=== PATIENT | male | born 1965 ===

== ENCOUNTER 2016-12-28 17:48 | Emergency (ER) | payer OTHER ==
[2016-12-28 18:20] VITALS: BMI 28.2
[2016-12-28 18:24] VITALS: BP 130/81; TEMP 98.4; O2SAT 98
--- NOTE | 2016-12-28 19:04 | C.PDOC ---
History Of Present Illness 51 yo male come in for evaluation of Right chest wall rash for past 3-4 days associated with increasing burning pain. Pt admits, was seen by PMD few days ago and received Rx: Acyclovir- currently taking. Pt c/o pain, no relived with OTC medication., Otherwise, pt denies fever, chills, headache, dizziness, neck pain, CP, SOB, dyspnea, diaphoresis, palpitation, N/V. Ambulate to ED for evaluation, not in any apparent distress. Time Seen by Provider: 12/28/16 18:35 Chief Complaint (Nursing): Abnormal Skin Integrity History Per: Patient History/Exam Limitations: no limitations Onset/Duration Of Symptoms: Days (3-4 fays) Current Symptoms Are (Timing): Still Present Past Medical History Reviewed: Historical Data, Nursing Documentation, Vital Signs Vital Signs: Last Vital Signs Temp 98.4 F 12/28/16 18:20 Pulse 71 12/28/16 19:23 Resp 18 12/28/16 19:23 BP 130/81 12/28/16 18:20 Pulse Ox 98 12/28/16 19:44 - Medical History PMH: Gastritis Family History: States: No Known Family Hx - Social History Hx Tobacco Use: No Hx Alcohol Use: No Hx Substance Use: No - Immunization History Hx Tetanus Toxoid Vaccination: No Hx Influenza Vaccination: No Hx Pneumococcal Vaccination: No Review Of Systems Except As Marked, All Systems Reviewed And Found Negative. Constitutional: Negative for: Fever, Chills Cardiovascular: Negative for: Chest Pain, Palpitations Respiratory: Negative for: Shortness of Breath Gastrointestinal: Negative for: Nausea, Vomiting Musculoskeletal: Negative for: Neck Pain Skin: Positive for: Rash (Right chest wall rash) Neurological: Negative for: Headache, Dizziness Physical Exam - Physical Exam Appears: Well, Non-toxic, No Acute Distress Skin: Normal Color, Warm, Dry, Rash (Right anterior and posterior chest wall erythematous papular/vesicular rash overlying T5-6 dermatome, no discharge, no cellulitis.) Eye(s): bilateral: Normal Inspection Nose: Normal Oral Mucosa: Moist Tongue: Normal Appearing Throat: Normal Neck: Normal, Normal ROM, Supple Lymphatic: Normal Exam Respiratory: Normal Breath Sounds Back: Normal Inspection Extremity: Normal ROM, No Tenderness, No Pedal Edema, No Deformity Neurological/Psych: Oriented x3, Normal Speech ED Course And Treatment O2 Sat by Pulse Oximetry: 98 Pulse Ox Interpretation: Normal Progress Note: On re-eavluation, pt is afebrile, hemodynamicaly stable. NOn- toxic. Tolerate Po well in ED. PulseOx 98% RA. ENT: no acute finidngs. Neck: (-) meningeal sign. Lungs: CTA B/L, BS equal B/L. Neurologicaly intact. SKin : exam c/w H/Zoster, no supperimposed infection, cellulitis. Pt advised on course of ds. Cont. Acyclovir as intiated, pain medication prn. ref. to F/U with PMd in 2-3 days for re-eavl. return if any new changes. Disposition Counseled Patient/Family Regarding: Diagnosis, Need For Followup, Rx Given - Disposition Referrals: José Miguel Lopez MD [Medical Doctor] - Disposition: HOME/ ROUTINE Disposition Time: 18:50 Condition: STABLE Additional Instructions: Take Acyclovir as prescribed by PMD. Take pain medication as need for pain Follow up with PMD In 2-3 days for re-evaluation. Return to ED if any worsening or new changes. 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 - Scribe Statement The provider has reviewed the documentation as recorded by the Scribwale Espinoza All medical record entries made by the Harleyibwale were at my direction and personally dictated by me. I have reviewed the chart and agree that the record accurately reflects my personal performance of the history, physical exam, medical decision making, and the department course for this patient. I have also personally directed, reviewed, and agree with the discharge instructions and disposition.
[2016-12-28 19:23] VITALS: PULSE 71; RESP 18
== END 2016-12-28 19:24 | disposition home or self-care (01) ==
LOC: C.ER 17:48
DX: B02.9 Zoster without complications (principal)

== ENCOUNTER 2017-01-11 05:41 | Emergency (ER) | payer OTHER ==
[2017-01-11 05:41] VITALS: BMI 28.2
[2017-01-11] MEDS ORDERED: Sodium Chloride 0.9% 1,000 ML IV ONE (06:02)
[2017-01-11] MEDS ORDERED: Sodium Chloride 0.9% 1,000 ML ONE (06:10)
--- NOTE | 2017-01-11 06:19 | C.PDOC ---
Time Seen by Provider: 01/11/17 06:00 Chief Complaint (Nursing): Abdominal Pain Past Medical History Vital Signs: Last Vital Signs Temp 98.3 F 01/11/17 05:47 Pulse 86 01/11/17 05:47 Resp 20 01/11/17 05:47 BP 112/77 01/11/17 05:47 Pulse Ox 98 01/11/17 05:47 - Medical History PMH: Gastritis Family History: States: Unknown Family Hx - Social History Hx Tobacco Use: No Hx Alcohol Use: No Hx Substance Use: No - Immunization History Hx Tetanus Toxoid Vaccination: No Hx Influenza Vaccination: No Hx Pneumococcal Vaccination: No ED Course And Treatment O2 Sat by Pulse Oximetry: 98
--- NOTE | 2017-01-11 06:20 | C.PDOC ---
History Of Present Illness 51 year old male presents to the ER with complaint of non-radiating abdominal pain, nausea, vomiting and diarrhea intermittently since yesterday afternoon. He states symptoms began after eating sardines and bananas. He denies fever, dysuria/hematuria, chest pain, shortness of breath, or sick contacts. Time Seen by Provider: 01/11/17 06:00 Chief Complaint (Nursing): Abdominal Pain History Per: Patient History/Exam Limitations: no limitations Onset/Duration Of Symptoms: Days (Since yesterday) Current Symptoms Are (Timing): Still Present Context: Food (After eating sardines and bananas) Location Of Pain/Discomfort: Other (Abdominal ) Associated Symptoms: Nausea, Vomiting, Diarrhea. denies: Fever, Chest Pain, Urinary Symptoms Past Medical History Reviewed: Historical Data, Nursing Documentation, Vital Signs Vital Signs: Last Vital Signs Temp 97.6 F 01/11/17 06:57 Pulse 69 01/11/17 06:57 Resp 16 01/11/17 06:57 BP 106/66 01/11/17 06:57 Pulse Ox 97 01/11/17 06:57 - Medical History PMH: Gastritis Family History: States: No Known Family Hx - Social History Hx Tobacco Use: No Hx Alcohol Use: No Hx Substance Use: No - Immunization History Hx Tetanus Toxoid Vaccination: No Hx Influenza Vaccination: No Hx Pneumococcal Vaccination: No Review Of Systems Except As Marked, All Systems Reviewed And Found Negative. Constitutional: Negative for: Fever, Chills Cardiovascular: Negative for: Chest Pain, Palpitations Respiratory: Negative for: Cough, Shortness of Breath Gastrointestinal: Positive for: Nausea, Vomiting, Abdominal Pain, Diarrhea Genitourinary: Negative for: Dysuria, Hematuria Physical Exam - Physical Exam Appears: Well, Non-toxic, Other (Mild discomfort) Skin: Normal Color, Warm, Dry Head: Normacephalic Oral Mucosa: Moist Cardiovascular: Rhythm Regular Respiratory: Normal Breath Sounds, No Rales, No Rhonchi, No Wheezing Gastrointestinal/Abdominal: Normal Exam, Bowel Sounds, Soft, No Tenderness, No Guarding, No Rebound, Other ((-) Benitez's, (-) McBurney's) Back: Normal Inspection, No CVA Tenderness Neurological/Psych: Oriented x3 ED Course And Treatment - Laboratory Results Result Diagrams: 01/11/17 06:06 01/11/17 06:06 O2 Sat by Pulse Oximetry: 98 (Room air) Pulse Ox Interpretation: Normal Progress Note: Blood work ordered and reviewed. Patient given IV NS bolus, IV zofran, IV toradol. Reevaluation Time: 06:50 Reassessment Condition: Improved (On reassessment, patient is resting comfortably and states he feels better. On exam, abdomen is soft and nontender. Blood work unremarkable. Patient given Rxs for pepcid, zofran, bentyl, and he was instructed to drink plenty of clear fluids and follow up with PMD/clinic in 1-2 days. He understands he should return to ED if symptoms worsen.) Disposition Counseled Patient/Family Regarding: Studies Performed, Diagnosis, Need For Followup, Rx Given - Disposition Referrals: [facility] [Outside] Disposition: HOME/ ROUTINE Disposition Time: 06:50 Condition: STABLE Additional Instructions: SEGUIMIENTO CON JACOBS DOCTOR / CLNICA EN 1-2 BARRAZA USE LOS MEDICAMENTOS QUE [place] NECESARIOS DEVUELVA A LA TABITHA DE EMERGENCIA SI LOS SNTOMAS EMPEORARAN BEBIDA DE FLUIDOS IRMA Prescriptions: Dicyclomine [Bentyl] 20 mg PO Q6 PRN #12 tab PRN Reason: ABDOMINAL CRAMPING Famotidine [Pepcid] 20 mg PO BID PRN #15 tab PRN Reason: abdominal Ondansetron [Zofran Odt] 4 mg PO Q8 PRN #12 odt PRN Reason: Nausea/Vomiting Instructions: Acute Nausea and Vomiting (ED), Acute Diarrhea (ED) Print Language: POLISH - POA Present On Arrival: None - Clinical Impression Clinical Impression: Nausea, Vomiting, Diarrhea - Scribe Statement The provider has reviewed the documentation as recorded by the Harleyibwale Zuleta All medical record entries made by the Harleyibwale were at my direction and personally dictated by me. I have reviewed the chart and agree that the record accurately reflects my personal performance of the history, physical exam, medical decision making, and the department course for this patient. I have also personally directed, reviewed, and agree with the discharge instructions and disposition.
[2017-01-11 06:21] LABS: BASO % 0.2 % (0.0-2.0); EOS # 0.1 K/uL (0.0-0.7); EOS % 1.3 % (0.0-4.0); HEMATOCRIT 40.9 % (35.0-51.0); LYMPH # 0.9 K/uL (1.0-4.3); LYMPH % 14.6 % (20.0-40.0); MEAN CELL VOLUME 89.2 fL (80.0-94.0); MEAN CORPUSCULAR HEMOGLOBIN 30.3 pg (27.0-31.0); MEAN PLATELET VOLUME 7.3 fL (7.2-11.7); MONO # 0.3 K/uL (0.0-0.8); MONO % 4.3 % (0.0-10.0); RED CELL DISTRIBUTION WIDTH 13.8 % (11.5-14.5); WHITE BLOOD COUNT 6.4 K/uL (4.8-10.8)
[2017-01-11 06:30] LABS: CHLORIDE 104 mmol/L (98-107); POTASSIUM 3.8 mmol/L (3.6-5.2); SODIUM 137 mmol/L (132-148)
[2017-01-11 06:32] LABS: AST/SGOT 30 U/L (17-59); BILIRUBIN,TOTAL 1.1 mg/dL (0.2-1.3); CARBON DIOXIDE 21 mmol/L (22-30); GFR AFRICAN-AMERICAN > 60
[2017-01-11 06:33] LABS: ALB/GLOB RATIO 1.3 (1.0-2.1); ALKALINE PHOSPHATASE 75 U/L (38-126); ALT/SGPT 29 U/L (21-72); BLOOD UREA NITROGEN 13 mg/dL (9-20); CALCIUM 8.6 mg/dl (8.6-10.4); GLUCOSE,RANDOM 90 mg/dL (75-110); TOTAL PROTEIN 7.3 g/dL (6.3-8.3)
[2017-01-11 06:59] VITALS: BP 106/66; PULSE 69; RESP 16; TEMP 97.6
[2017-01-20 00:11] VITALS: O2SAT 98
== END 2017-01-11 06:58 | disposition home or self-care (01) ==
LOC: C.ER 05:41
DX: R11.2 Nausea with vomiting, unspecified (principal); R19.7 Diarrhea, unspecified
CPT/HCPCS: 80053; 83690; 85025; 96361; 96374; 96375; 99284; J1885; J2405; J7040

== ENCOUNTER 2017-06-12 17:07 | Emergency (ER) | payer OTHER ==
[2017-06-12 17:07] VITALS: BMI 28.2
[2017-06-12 17:15] VITALS: RESP 20
[2017-06-12] MEDS ORDERED: Sodium Chloride 0.9% 1,000 ML IV ONE (17:41)
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
[2017-06-12 18:09] LABS: BASO % 0.8 % (0.0-2.0); EOS # 0.1 K/uL (0.0-0.7); EOS % 2.3 % (0.0-4.0); HEMATOCRIT 39.3 % (35.0-51.0); LYMPH # 1.7 K/uL (1.0-4.3); LYMPH % 36.1 % (20.0-40.0); MEAN CELL VOLUME 89.4 fL (80.0-94.0); MEAN CORPUSCULAR HEMOGLOBIN 30.3 pg (27.0-31.0); MEAN CORPUSCULAR HGB CONC 33.8 g/dL (33.0-37.0); MEAN PLATELET VOLUME 7.2 fL (7.2-11.7); MONO # 0.5 K/uL (0.0-0.8); MONO % 9.9 % (0.0-10.0); RED CELL DISTRIBUTION WIDTH 13.6 % (11.5-14.5); WHITE BLOOD COUNT 4.6 K/uL (4.8-10.8)
[2017-06-12] MEDS ORDERED: Sodium Chloride 0.9% 1,000 ML ONE (18:10)
[2017-06-12 18:15] LABS: CHLORIDE 105 mmol/L (98-107); POTASSIUM 3.7 mmol/L (3.6-5.2); SODIUM 140 mmol/L (132-148)
[2017-06-12 18:17] LABS: BILIRUBIN,TOTAL 0.7 mg/dL (0.2-1.3); CARBON DIOXIDE 23 mmol/L (22-30); GFR AFRICAN-AMERICAN > 60; INR 1.2
[2017-06-12 18:18] LABS: ALB/GLOB RATIO 1.5 (1.0-2.1); ALKALINE PHOSPHATASE 72 U/L (38-126); ALT/SGPT 35 U/L (21-72); AST/SGOT 21 U/L (17-59); BLOOD UREA NITROGEN 19 mg/dL (9-20); CALCIUM 8.7 mg/dl (8.6-10.4); GLUCOSE,RANDOM 92 mg/dL (75-110); TOTAL PROTEIN 7.1 g/dL (6.3-8.3)
[2017-06-12 18:44] LABS: RBC URINE 2 /hpf (0-3); URINE BILIRUBIN NEGATIVE (NEGATIVE); URINE COLOR Yellow (YELLOW); URINE GLUCOSE (UA) NORMAL (Normal); URINE KETONE NEGATIVE (NEGATIVE); URINE LEUKOCYTE ESTERASE NEG Leu/uL (Negative); URINE PROTEIN NEGATIVE (NEGATIVE); URINE UROBILINOGEN NORMAL mg/dL (0.2-1.0); WBC URINE < 1 /hpf (0-5)
[2017-06-12 18:53] LABS: URINE BLOOD TRACE (NEGATIVE)
[2017-06-12] MEDS ORDERED: Iodixanol 320 MG/ML 100 ML BOTTLE IV ONE (19:28)
--- NOTE | 2017-06-12 21:18 | CT ---
EXAM: CT Abdomen and Pelvis With Intravenous Contrast CLINICAL HISTORY: 52 years old, male; Pain; Abdominal pain; Localized; Lower; Additional info: Lower abd pain TECHNIQUE: Axial computed tomography images of the abdomen and pelvis with intravenous contrast. All CT scans at this facility use one or more dose reduction techniques, viz.: automated exposure control; ma/kV adjustment per patient size (including targeted exams where dose is matched to indication; i.e. head); or iterative reconstruction technique. Coronal and sagittal reformatted images were created and reviewed. CONTRAST: 100 mL of visipaque 320 administered intravenously. COMPARISON: CT - ABD PELVIS W/O PO OR IV CONT 09/30/2015 12:53:09 PM FINDINGS: Lower thorax: Minimal atelectasis. RIGHT middle lobe calcified granuloma. ABDOMEN: Liver: Mild fatty infiltration. Punctate hepatic calcification. Gallbladder and bile ducts: No calcified stones. No ductal dilation. Pancreas: No ductal dilation. No mass. Spleen: Few splenic calcifications. No splenomegaly. Adrenals: No mass. Kidneys and ureters: No mass. No hydronephrosis. Stomach and bowel: Duodenum does not cross midline. Small bowel predominantly within RIGHT abdomen. Cecum within LEFT abdomen. No definite mural thickening. No obstruction. Appendix: Normal caliber. No inflammation. PELVIS: Bladder: Unremarkable. Reproductive: Borderline enlarged prostate. ABDOMEN and PELVIS: Intraperitoneal space: No significant fluid collection. No free air. Bones/joints: Mild degenerative changes of spine. No acute fracture. Soft tissues: Tiny umbilical hernia containing fat. Vasculature: Unremarkable. No aneurysm. Lymph nodes: No pathologically enlarged lymph nodes. IMPRESSION: 1. No definite acute intraabdominal abnormality. 2. Bowel malrotation.
[2017-06-12 21:33] VITALS: BP 111/74; PULSE 71; TEMP 98.1; O2SAT 100
== END 2017-06-12 21:34 | disposition home or self-care (01) ==
LOC: C.ER 17:07
DX: R10.30 Lower abdominal pain, unspecified (principal)
CPT/HCPCS: 74177; 80053; 81001; 83690; 85025; 85610; 85730; 87491; 87591; 96361; 96374; 99285; J1885; J7040; Q9967

== ENCOUNTER 2018-03-04 15:41 | Emergency (ER) | payer OTHER ==
[2018-03-04 15:41] VITALS: BMI 28.2
[2018-03-04 15:56] VITALS: BP 108/70; PULSE 99; RESP 20; TEMP 98.9; O2SAT 97
[2018-03-04] MEDS ORDERED: Oxycodone/Acetaminophen 5/325 mg Tab PO STA (16:35)
[2018-03-04] MEDS ORDERED: Oxycodone/Acetaminophen 5/325 mg Tab ONE (16:42)
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
== END 2018-03-04 18:46 | disposition home or self-care (01) ==
LOC: C.ER 15:41
DX: S09.90XA Unspecified injury of head, initial encounter (principal); S16.1XXA Strain of muscle, fascia and tendon at neck level, initial encounter; S33.5XXA Sprain of ligaments of lumbar spine, initial encounter; V43.52XA Car driver injured in collision with other type car in traffic accident, initial encounter

== ENCOUNTER 2018-08-21 09:04 | Emergency (ER) | payer OTHER, MEDICAID ==
[2018-08-21 09:04] VITALS: BMI 28.2
[2018-08-21 09:19] VITALS: RESP 20; TEMP 98.1; O2SAT 98
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
[2018-08-21 10:44] VITALS: BP 104/72; PULSE 57
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
== END 2018-08-21 11:24 | disposition home or self-care (01) ==
LOC: C.ER 09:04
DX: S30.0XXA Contusion of lower back and pelvis, initial encounter (principal); V89.2XXA Person injured in unspecified motor-vehicle accident, traffic, initial encounter; M54.5 Low back pain